=== PATIENT | female | born 1955 | race Caucasian/White ===

== ENCOUNTER 2024-12-17 15:50 | Emergency (ER) | payer MEDICARE ==
--- NOTE | 2024-12-17 16:14 | ED ---
Lower Extremity Injury HPI <Mason Murray - Last Filed: 12/17/24 18:00> - General Source: patient Mode of arrival: ambulatory Limitations: no limitations <Rekha Plascencia - Last Filed: 12/17/24 18:33> - General Chief Complaint: Extremity Injury, Lower Stated Complaint: right ankle pain Time Seen by Provider: 12/17/24 16:08 - History of Present Illness Initial Comments: 69-year-old female with history of diabetes with neuropathy, fibromyalgia here for right ankle fracture. Patient reported on 12/16 she fell and lost her balance in the bathroom and went to urgent care. Ankle x-ray was done and showed unstable Dias B ankle fracture, tibial avulsion and was advised to seek care in our facility for further management. She denied loss of consciousness, hitting her head, leg pain, changes in sensation in the affected limb, back pain, headaches, dizziness. (Rekha Plascencia) - Related Data Previous Rx's Medication Instructions Recorded HYDROcodone/APAP 5-325MG [[place] 1 tab PO Q6HR PRN 3 Days #12 tab 12/17/24 5-325] Allergies Allergy/AdvReac Type Severity Reaction Status Date / Time amoxicillin [From Augmentin] AdvReac Rash/Hives Verified 12/17/24 16:10 baclofen AdvReac Nausea Verified 12/17/24 16:10 clavulanic acid AdvReac Rash/Hives Verified 12/17/24 16:10 [From Augmentin] fluticasone AdvReac Anaphylaxis Verified 12/17/24 16:10 [From Advair Diskus] nickel AdvReac Itching Verified 12/17/24 16:10 salmeterol AdvReac Anaphylaxis Verified 12/17/24 16:10 [From Advair Diskus] sertraline [From Zoloft] AdvReac Unknown Verified 12/17/24 16:10 Review of Systems ROS Other: All systems not noted in ROS Statement are negative. <Maosn Murray - Last Filed: 12/17/24 18:00> ROS Other: All systems not noted in ROS Statement are negative. <Rekha Plascencia - Last Filed: 12/17/24 18:33> ROS Statement: Those systems with pertinent positive or pertinent negative responses have been documented in the HPI. Past Medical History Past Medical History: Cancer, Diabetes Mellitus, Fibromyalgia, Renal Disease Additional Past Medical History / Comment(s): DM with neuropathy Past Surgical History: Section, Hysterectomy Additional Past Surgical History / Comment(s): splenectomy Past Psychological History: No Psychological Hx Reported Smoking Status: Vaper Past Alcohol Use History: None Reported Past Drug Use History: None Reported <Rekha Plascencia - Last Filed: 12/17/24 18:33> General Exam Limitations: no limitations <Rekha Plascencia - Last Filed: 12/17/24 18:33> - General Exam Comments Initial Comments: Physical examination: Vital signs reviewed General: non toxic, no distress, appears at stated age Head: atraumatic, normocephalic, symmetric Mouth: no lip lesion, mucus membranes moist Cardiovascular: S1S2 reg, no murmur Lungs: CTA bilateral, no rhonchi, no rales, no accessory muscle use Abdominal: soft, nondistended, nontender to palpation, no guarding Ext: muscle strength 5 out of 5 in all 4 extremities grossly, no gross muscle atrophy, no contractures, positive dorsalis pedis pulse bilateral, no edema, right ankle wrapped in and in cast, showed swolled medial and lateral ankle area, no bruising bleeding or erythema noted Neuro: no gross focal neuro deficits Psych: Alert and oriented x3, appropriate affect and mood (Rekha Plascencia) Course <Rekha Plascencia - Last Filed: 12/17/24 18:33> Vital Signs 12/17/24 16:03 Temperature 97.6 F Pulse Rate 80 Respiratory 22 Rate Blood Pressure 101/60 O2 Sat by Pulse 100 Oximetry - Reevaluation(s) Reevaluation #1: 12/17/24 16:50 right ankle splint removed and showed a swollen lateral and medial ankle area with no erythema or bruising. (Rekha Plascencia) Procedures - Orthopedic Splinting/Casting Injury #1 Side: right Lower Extremity Injury Location: ankle Lower Extremity Immobilizer: posterior splint, stirrup splint Other Orthopedic Equipment: walker <Mason Murray - Last Filed: 12/17/24 18:00> Medical Decision Making <Mason Murray - Last Filed: 12/17/24 18:00> <Rekha Plascencia - Last Filed: 12/17/24 18:33> - Medical Decision Making I personally saw the patient and performed the critical portion of the service. I discussed the patient care with the resident. I directed management, care planning and final disposition of the patient. This includes, but not limited to, review of all lab work, radiological studies, EKG's, consultations, vital signs, and nursing notes. EKG interpreted by me (3pts min.) @ [as above] X-Rays interpreted by me (1 pt min.) @ [X-ray showing a nondisplaced trimalar fracture of the right ankle CT interpreted by me ( 1pt min.) @ [none] U/S interpreted by me (1 pt min.) @ [none] Critical care time of [0] minutes excluding separately billable procedures was spent in conjunction with critical care activities provided by the Resident and Attending simultaneously. I was present during [yes splinting of the right ankle] for all critical portions of the procedure and as immediately available to furnish service during the entire procedure. (Mason Murray) Was pt. sent in by a medical professional or institution (RASHAD Collins, [employer], urgent care, hospital, or skilled nursing...) When possible be specific @ -Sent in by urgent care Did you speak to anyone other than the patient for history (EMS, parent, family, police, friend...)? What history was obtained from this source @ -No Did you review nursing and triage notes (agree or disagree)? Why? @ -I reviewed and agree with nursing and triage notes Were old charts reviewed (outside hosp., previous admission, EMS record, old EKG, old radiological studies, urgent care reports/EKG's, skilled nursing records)? Report findings @ -No old charts were reviewed Differential Diagnosis? @ -Differential Musculoskeletal Muscular strain, contusion, ligament sprain, fracture, arthritis, septic arthritis, bursitis, cellulitis, muscle spasm, nerve compression, DVT, arterial occlusion, herpes zoster, electrolyte abnormality, tumor.... This is not meant to be in all inclusive list EKG interpreted by me (3pts min.). @ -As above X-rays interpreted by me (1pt min.). @ -X-ray shows fractures of the lateral and medial malleolus CT interpreted by me (1pt min.). @ -None done U/S interpreted by me (1pt. min.). @ -None done What testing was considered but not performed or refused? (CT, X-rays, U/S, labs)? Why? @ -None What meds were considered but not given or refused? Why? @ -None Did you discuss the management of the patient with other professionals (professionals i.e. DrBeth, PA, [employer], lab, RT, psych nurse, social sciences department chair, voicer, teacher, program officer, showcase trimmer)? Give summary @ -Dr. Zaldivar, supervising physician Was smoking cessation discussed for >3mins.? @ -No Was critical care preformed (if so, how long)? @ -No Were there social determinants of health that impacted care today? How? (Homelessness, low income, unemployed, alcoholism, drug addiction, transportation, low edu. Level, literacy, decrease access to med. care, group home, rehab)? @ -No Was there de-escalation of care discussed even if they declined (Discuss DNR or withdrawal of care, Hospice)? DNR status @ -No What co-morbidities impacted this encounter? (DM, HTN, Smoking, COPD, CAD, Cancer, CVA, ARF, Chemo, Hep., AIDS, mental health diagnosis, sleep apnea, morbid obesity)? @ -None Was patient admitted / discharged? Hospital course, mention meds given and route, prescriptions, significant lab abnormalities, going to OR and other pertinent info. @ -Discharge. Ordered Right ankle complete view, Ketorolac and Morphine IVP once. Right ankle completely showed trimalleolar fracture. Patient placed on a splint and was advised to be nonweightbearing by using crutches or a walker. Al so advised to see orthopedics on outpatient follow-up. Patient reported that she has a walker at home and she will see orthopedics in her hometown in [place]. Sent home on [place] 5 p.o. for about 3 days as needed for mild to severe pain. Undiagnosed new problem with uncertain prognosis? @ -No Drug Therapy requiring intensive monitoring for toxicity (Heparin, Nitro, Insulin, Cardizem)? @ -No Were any procedures done? @ -No Diagnosis/symptom? @ -[default] Acute, or Chronic, or Acute on Chronic? @ -Acute Uncomplicated (without systemic symptoms) or Complicated (systemic symptoms)? @ -Uncomplicated Side effects of treatment? @ -No Exacerbation, Progression, or Severe Exacerbation? @ -No Poses a threat to life or bodily function? How? (Chest pain, [place], [place], pneumonia, PE, COPD, DKA, ARF, appy, cholecystitis, CVA, Diverticulitis, Homicidal, Suicidal, threat to staff... and all critical care pts) @ -No (Rekha Plascencia) Disposition <Mason Murray - Last Filed: 12/17/24 18:00> Is patient prescribed a controlled substance at d/c from ED?: Yes When asked, does pt state using other controlled substances?: No If prescribed controlled substance>3 days was MAPS reviewed?: Prescribed <3 Days Time of Disposition: 17:54 <Rekha Plascencia - Last Filed: 12/17/24 18:33> Clinical Impression: Fracture of ankle Disposition: HOME SELF-CARE Condition: Good Instructions (If sedation given, give patient instructions): Ankle Fracture (ED) Additional Instructions: Every disease is a spectrum and a small chance still exists that a serious condition could develop, for this reason, please monitor yourself closely for new, changing or worsening symptoms, symptoms that persist beyond another 72 hours, worsening pain on the affected extremity, worsening affected extremity swelling, fever >4 days, inability to tolerate/keep down fluids or your medications, inability to follow up with outpatient providers as instructed and should you experience these symptoms or should you have any further concerns for your wellbeing please return to the ED or call 911 immediately. PLEASE call your primary care physician as soon as possible to arrange / discuss plan for followup appointment. Appointment in the next 1-3 days is strongly encouraged if possible. PLEASE let us know here before you leave if there is anything further we can do to be of any assistance. Take care and feel Better! Prescriptions: HYDROcodone/APAP 5-325MG [[place] 5-325] 1 tab PO Q6HR PRN 3 Days #12 tab PRN Reason: Moderate To Severe Pain (4-10) Referrals: None,Stated [REFERRING] - 1-2 days Julian Batista, [Doctor of Osteopathic Medicine] - 1-2 days
[2024-12-17] MEDS: KETOROLAC 15 MG/ML 1 ML VIAL IVP STA (17:24)
--- NOTE | 2024-12-17 17:29 | XR ---
EXAMINATION TYPE: XR ankle complete RT DATE OF EXAM: 12/17/2024 5:23 PM COMPARISON: None. CLINICAL INDICATION: Female, 69 years old with history of right ankle fracture, TECHNIQUE: XR ankle complete RT, views submitted for evaluation. FINDINGS: Minimally displaced medial malleolar fracture as well as minimally displaced oblique fibular fracture at the level of the ankle mortise. Tiny chip fracture also seen involving the posterior malleolus on the lateral projection. Soft tissue swelling. IMPRESSION: 1. Fractures as described. [facility], , 12/17/2024 5:27 PM
[2024-12-17] MEDS: MORPHINE SULFATE 2 MG/ML SYRINGE IVP STA (17:37)
[2024-12-17] MEDS: MORPHINE SULFATE 2 MG/ML SYRINGE IM STA (17:47)
[2024-12-17] MEDS: KETOROLAC 15 MG/ML 1 ML VIAL IM STA (17:48)
[2024-12-17 18:54] VITALS: BP 150/81; PULSE 57; RESP 18; TEMP 97.7
== END 2024-12-17 18:52 | disposition home or self-care (01) ==
LOC: EC 15:50
DX: S82.891A Other fracture of right lower leg, initial encounter for closed fracture (principal); F17.290 Nicotine dependence, other tobacco product, uncomplicated; Z88.0 Allergy status to penicillin; Z88.1 Allergy status to other antibiotic agents; Z88.8 Allergy status to other drugs, medicaments and biological substances; W19.XXXA Unspecified fall, initial encounter
CPT/HCPCS: 99284 ×2; 96374 ×2; 96375 ×2; 29515 ×2; 73610; J2270; J1885